=== PATIENT | male | born 1945 | race Caucasian/White ===

== ENCOUNTER 2017-11-15 13:45 | Emergency (ER) | payer MEDICARE ==
--- NOTE | 2017-11-15 14:52 | ERPHSYRPT ---
- History of Present Illness Time Seen by Provider: 11/15/17 14:38 Source: patient, EMS Exam Limitations: no limitations Patient Subjective Stated Complaint: pt here for a syncope episode today while getting out of truck, pt lost hes yesterday, pt states he eat breakfast today,BS was 124 Triage Nursing Assessment: pt alert, resp easy,skin w/d/p. has abrasion to right forehead and to right cheeck, pt refused c collar and co neck pain Physician History: The patient is a 72-year-old male brought in by ambulance from home where he passed out while stepping out of a pickup truck, causing him to fall "flat on his face on the ground". He complains of neck pain but refused to wear the c- collar. He is feeling much better now except for the neck pain. He denies nausea or vomiting. He denies numbness or tingling. He had a tragic event happened yesterday during which his had a major heart attack and . He hasn't eaten or had much to drink in 24 hours. His last tetanus vaccination is unknown. His past medical history is significant for hypertension, diabetes, high cholesterol, CAD, cardiac stent, appendectomy. Witnessed: by family Prior Episodes: single episode today Timing/Duration: today, sudden, improved Precipitating Factors: lightheadedness Context: standing Loss of Consciousness: brief (seconds) Charcter of event(s): became unresponsive Allergies/Adverse Reactions: No Known Drug Allergies Allergy (Unverified 11/15/17 14:02) Home Medications: Androgel 1 ea DAILY 08/29/11 [History] Aspirin EC 325 mg 325 mg PO DAILY 08/29/11 [History] Lipitor 20 mg PO DAILY 08/29/11 [History] Neurontin 300 mg 400 mg PO TID 08/29/11 [History] Nitrostat 0.4 MG 0.4 mg SL UD 08/29/11 [History] Toprol Xl 50 MG 100 mg PO DAILY 08/29/11 [History] Ultram 50 mg 50 mg PO TID 08/29/11 [History] Adalimumab [Humira] 20 mg IJ UD 07/31/14 [History] Ascorbic Acid 500 mg [Vitamin C 500 MG] 1,000 mg PO DAILY 07/31/14 [ History] Escitalopram Oxalate 10 mg [Lexapro 10 MG] 10 mg PO DAILY 07/31/14 [History] Exenatide Microspheres [Bydureon Pen] 2 mg IJ UD 07/31/14 [History] Valsartan [Diovan] 80 mg PO DAILY 07/31/14 [History] hydrOXYzine HCl [Hydroxyzine HCl] 25 mg PO Q6H PRN PRN 07/31/14 [History] Hx Tetanus, Diphtheria Vaccination/Date Given: Yes (2011) Hx Influenza Vaccination/Date Given: No Hx Pneumococcal Vaccination/Date Given: No Immunizations Up to Date: No - Past Medical History Pertinent Past Medical History: Yes Neurological History: No Pertinent History ENT History: No Pertinent History Cardiac History: Coronary Artery Disease, Myocardial Infarction (PR) Respiratory History: No Pertinent History Endocrine Medical History: Diabetes Type II Musculoskeletal History: Arthritis GI Medical History: No Pertinent History History: No Pertinent History Psycho-Social History: Depression Male Reproductive Disorders: No Pertinent History Other Medical History: ACUTE INFERIOR WALL PR COMPLICATED WITH 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 - Past Surgical History Past Surgical History: Yes Neuro Surgical History: No Pertinent History Cardiac: Cardiac Stent Respiratory: No Pertinent History Gastrointestinal: Appendectomy Genitourinary: No Pertinent History Musculoskeletal: Orthopedic Surgery Male Surgical History: No Pertinent History Other Surgical History: repaired disk in lower back - Social History Smoking Status: Former smoker Exposure to second hand smoke: No Alcohol Use: Socially Drug Use: none Patient Lives Alone: Yes - Review of Systems Constitutional: No Fever, No Chills Eyes: No Symptoms Ears, Nose, & Throat: No Symptoms Respiratory: No Cough, No Dyspnea Cardiac: No Chest Pain, No Edema, No Syncope Abdominal/Gastrointestinal: No Abdominal Pain, No Nausea, No Vomiting, No Diarrhea Genitourinary Symptoms: No Dysuria Musculoskeletal: Fall, Injury, No Back Pain, No Neck Pain Skin: Other (abrasion), No Rash Neurological: No Dizziness, No Focal Weakness, No Sensory Changes Psychological: No Symptoms Endocrine: No Symptoms Hematologic/Lymphatic: No Symptoms Immunological/Allergic: No Symptoms All Other Systems: Reviewed and Negative Physical Exam - Nursing Vital Signs Nursing Vital Signs: Initial Vital Signs Temperature 97.2 F 11/15/17 13:47 Pulse Rate 77 11/15/17 13:47 Respiratory Rate 16 11/15/17 13:47 Blood Pressure 120/68 11/15/17 13:47 O2 Sat by Pulse Oximetry 95 11/15/17 13:47 Pain Scale Pain Intensity 10 - [place] Coma Scale Best Eye Response ([place]): (4) open spontaneously Best Verbal Response ([place]): (5) oriented Best Motor Response ([place]): (6) obeys commands [place] Total: 15 - Physical Exam General Appearance: no apparent distress, alert Eye Exam: bilateral eye: normal inspection, PERRL Ears, Nose, Throat Exam: normal ENT inspection, pharynx normal, moist mucous membranes Respiratory: normal breath sounds, lungs clear, No chest tenderness, No respiratory distress Cardiovascular: regular rate/rhythm, capillary refill <2 sec, No murmur, No pulse deficit Gastrointestinal: soft, No tenderness, No distention, No mass Rectal Exam: not done Back Exam: normal inspection, normal range of motion, No CVA tenderness, No vertebral tenderness Extremity Exam: normal inspection, normal range of motion, pelvis stable, No tenderness 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, 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, 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 Exam: normal speech, PERRL, No facial droop Coordination/Gait: normal finger to nose Motor/Sensory: no motor deficit, no sensory deficit, no pronator drift Skin Exam: abrasion (right forehead) SpO2 Interpretation: normal SpO2: 95 Oxygen Delivery: Room Air - Course EKG Interpreted by Me: RATE, Sinus Rhythm, NORMAL AXIS, NORMAL INTERVALS, NORMAL QRS, NORMAL ST-T, Other (no change in EKG compared to EKG 08/29/11.) - CT Exams Head CT Interpretation: Negative, Tele-radiologist Report (per Dr Pineda), No Fracture , No/Intracranial Hemorrhag Maxillofacial Bones CT Interpretation: Negative, Tele-radiologist Report (Per Dr Pineda), No Fracture Cervical Spine CT Interpretation: Tele-radiologist Report (per Dr Pineda), No Fracture, No Subluxation Ordered Tests: Active Orders 24 hr Category Date Time Status EKG-ER Only STAT Care 11/15/17 14:58 Active IV Insertion STAT Care 11/15/17 14:58 Active Orthostatic Vital Signs STAT Care 11/15/17 14:58 Active Pulse Oximetry (ED) STAT Care 11/15/17 14:58 Active CERVICAL SPINE WO CONTRAST [CT] Stat Exams 11/15/17 15:51 Taken FACIAL BONES WO CONTRAST [CT] Stat Exams 11/15/17 15:00 Taken HEAD WITHOUT CONTRAST [CT] Stat Exams 11/15/17 14:59 Taken CBC W DIFF Stat Lab 11/15/17 15:15 Completed CMP Stat Lab 11/15/17 15:15 Completed ETHYL ALCOHOL Stat Lab 11/15/17 15:15 Completed Lactic Acid Stat Lab 11/15/17 15:25 Completed Manual Differential NC Stat Lab 11/15/17 15:15 Completed UA W/RFX UR CULTURE Stat Lab 11/15/17 14:58 Uncollected Medication Summary Discontinued Medications Generic Name Dose Route Start Last Admin Trade Name Freq PRN Reason Stop Dose Admin Diphtheria/Tetanus/Acell Pertussis 0.5 ml 11/15/17 15:20 11/15/17 16:02 Adacel Vial IM 11/15/17 15:21 0.5 ml .ONCE ONE Administration Diphtheria/Tetanus/Acell Pertussis Confirm 11/15/17 15:34 Adacel Vial Administered 11/15/17 15:35 Dose 0.5 ml IM .STK-MED ONE Sodium Chloride 1,000 mls @ 999 mls/hr 11/15/17 14:58 11/15/17 16:02 Sodium Chloride 0.9% 1000 Ml IV 11/15/17 15:58 999 mls/hr .Q1H1M STA Administration Sodium Chloride Confirm 11/15/17 15:34 Sodium Chloride 0.9% 1000 Ml Administered 11/15/17 15:35 Dose 1,000 mls @ ud .ROUTE .STK-MED ONE Morphine Sulfate 4 mg 11/15/17 15:20 11/15/17 16:02 Morphine Sulfate 4 Mg Inj IM 11/15/17 15:21 4 mg STAT ONE Administration Morphine Sulfate Confirm 11/15/17 15:34 Morphine Sulfate 4 Mg Inj Administered 11/15/17 15:35 Dose 4 mg .ROUTE .STK-MED ONE Lab/Rad Data: Laboratory Result Diagrams 11/15/17 15:15 11/15/17 15:15 Laboratory Results 11/15/17 11/15/17 11/15/17 Range/Units 15:25 15:15 15:15 WBC 13.9 H (4.0-10.5) K/mm3 RBC 4.62 (4.1-5.6) M/mm3 Hgb 13.4 (12.5-18.0) gm/dl Hct 40.1 L (42-50) % MCV 86.8 (78-100) fl MCH 29.0 (26-32) pg MCHC 33.4 (32-36) g/dl RDW 14.9 H (11.5-14.0) % Plt Count 214 (150-450) K/mm3 MPV 9.9 H (6-9.5) fl Gran % 61.1 (36.0-66.0) % Eos # (Auto) 0.23 (0-0.5) Absolute Lymphs (auto) 3.74 (1.0-4.6) Absolute Monos (auto) 1.40 H (0.0-1.3) Lymphocytes % 26.8 (24.0-44.0) % Monocytes % 10.1 (0.0-12.0) % Eosinophils % 1.7 (0.00-5.0) % Basophils % 0.3 (0.0-0.4) % Absolute Granulocytes 8.52 H (1.4-6.9) Segmented Neutrophils 52 (36.-66.) % Lymphocytes (Manual) 37 (24-44) % Monocytes (Manual) 11 (0.0-12.0) % Basophils # 0.04 (0-0.4) Platelet Estimate NORMAL (NORMAL) RBC Morphology NORMAL Sodium 141 (137-145) mmol/L Potassium 3.7 (3.5-5.1) mmol/L Chloride 104 (98-107) mmol/L Carbon Dioxide 25 (22-30) mmol/L Anion Gap 15.5 H (5-15) MEQ/L BUN 20 (9-20) mg/dL Creatinine 1.14 (0.66-1.25) mg/dL Estimated GFR > 60.0 ML/MIN Glucose 67 L (74-106) mg/dL Lactic Acid 1.7 (0.4-2.0) Calcium 9.4 (8.4-10.2) mg/dL Total Bilirubin 0.60 (0.2-1.3) mg/dL AST 45 (17-59) U/L ALT 47 (0-50) U/L Alkaline Phosphatase 99 (38-126) U/L Serum Total Protein 7.7 (6.3-8.2) g/dL Albumin 4.3 (3.5-5.0) g/dL Ethyl Alcohol < 10 (0-10) mg/dL - Progress Progress: improved Counseled pt/family regarding: lab results, diagnosis, rad results - Departure Time of Disposition: 16:31 Departure Disposition: Home Clinical Impression: Syncope and collapse Condition: Stable Critical Care Time: No Referrals: YOGESH LI [Primary Care Provider] - Additional Instructions: You had a syncopal/fainting episode today. It caused you to fall on your face, creating an abrasion to your face. The CT scans of your head, neck, and face were negative. Your EKG was normal. You were given morphine 4 mg and fluids by IV in the ER. You were given a tetanus vaccination in the ER. Stay well hydrated and eat a good diet. Follow-up with your primary medical doctor as needed.
[2017-11-15] MEDS ORDERED: Sodium Chloride 0.9% 1000 ML 1,000 ML IV STA (14:58)
[2017-11-15] MEDS ORDERED: MORPHINE SULFATE 4 MG INJ IM ONE (15:20)
[2017-11-15] MEDS ORDERED: Adacel Vial IM ONE ×2 (15:20→15:34)
[2017-11-15] MEDS ORDERED: Sodium Chloride 0.9% 1000 ML 1,000 ML ONE (15:34)
[2017-11-15] MEDS ORDERED: MORPHINE SULFATE 4 MG INJ ONE (15:34)
[2017-11-15 15:39] LABS: BASOPHIL % 0.3 % (0.0-0.4); Basophil (Absolute #) 0.04 (0-0.4); Eosinophil % 1.7 % (0.00-5.0); Eosinophil (Absolute #) 0.23 (0-0.5); Granulocyte Absolute (ANC) 8.52 (1.4-6.9); Granulocytes % 61.1 % (36.0-66.0); Hematocrit 40.1 % (42-50); Hemoglobin 13.4 gm/dl (12.5-18.0); Lymphocyte (Absolute #) 3.74 (1.0-4.6); Lymphocytes % 26.8 % (24.0-44.0); Mean Cell Volume 86.8 fl (78-100); Mean Corpuscular Hgb Concent. 33.4 g/dl (32-36); Mean Platelet Volume 9.9 fl (6-9.5); Monocytes % 10.1 % (0.0-12.0); Platelet Count 214 K/mm3 (150-450); Red Blood Count 4.62 M/mm3 (4.1-5.6); Red Cell Distribution Width 14.9 % (11.5-14.0); White Blood Count 13.9 K/mm3 (4.0-10.5)
[2017-11-15 15:57] LABS: ALBUMIN 4.3 g/dL (3.5-5.0); ALKALINE PHOSPHATASE 99 U/L (38-126); ANION GAP 15.5 MEQ/L (5-15); BLOOD UREA NITROGEN 20 mg/dL (9-20); CHLORIDE 104 mmol/L (98-107); Calcium 9.4 mg/dL (8.4-10.2); Carbon Dioxide 25 mmol/L (22-30); Creatinine 1 1.14 mg/dL (0.66-1.25); Glucose 67 mg/dL (74-106); Potassium 3.7 mmol/L (3.5-5.1); SGOT/AST 45 U/L (17-59); SGPT/ALT 47 U/L (0-50); SODIUM 141 mmol/L (137-145); Total Protein 7.7 g/dL (6.3-8.2)
[2017-11-15 16:00] LABS: ETHYL ALCOHOL < 10 mg/dL (0-10)
[2017-11-15 16:19] LABS: Lymphocytes 37 % (24-44); Monocyte 11 % (0.0-12.0); Neutrophils 52 % (36.-66.); Total Cells Counted 100
[2017-11-15 16:20] LABS: Platelet Estimate NORMAL (NORMAL)
[2017-11-15 17:14] VITALS: BP 118/72; PULSE 71; O2SAT 94
--- NOTE | 2017-11-15 20:17 | XRAY ---
Indication: Pain following fall. Loss of consciousness. Multiple contiguous axial images obtained through the head without contrast. Comparison: None Age-appropriate global atrophy and minimal periventricular degenerative micro-ischemia bilaterally. No acute intracranial hemorrhage, abnormal extra-axial fluid collection, or mass effect. Fourth ventricle is midline without hydrocephalus. Bony calvarium intact. Visualized paranasal sinuses and mastoid air cells are clear. Impression: Normal aging brain including atrophy and degenerative micro-ischemia. No acute intracranial abnormalities. Comment: Preliminary interpretation was made by [facility]. No discrepancy. CTDI 50.53
--- NOTE | 2017-11-15 20:20 | XRAY ---
Indication: Pain following fall. Loss of consciousness. Multiple contiguous axial images obtained through the cervical spine. Sagittal and coronal reformatted images obtained. Comparison: None Axial images negative for acute fracture, suspicious bony lesions, or spinal canal stenosis. Mild/moderate C4-T2 degenerative endplate spurring. Sagittal and coronal reformatted images demonstrate normal alignment with C5-T1 disc space narrowing. No acute compression fracture, subluxation, or jumped facet. Normal-appearing craniocervical junction. Visualized noncontrasted soft tissues including on apices unremarkable. CT head reported separately. Impression: 1. Negative acute fracture/subluxation. 2. Multilevel degenerative changes. Comment: Preliminary interpretation was made by [facility]. No discrepancy. CTDI 65.33
--- NOTE | 2017-11-15 20:22 | XRAY ---
Indication: Right forehead and right cheek pain following fall. Loss of consciousness. Multiple contiguous axial images obtained through the facial bones. Sagittal and coronal reformatted images obtained. Comparison: None Patient is edentulous. No acute fracture, suspicious bony lesions, or radiopaque foreign body. Orbits including roof, mejia, and floors intact. Paranasal sinuses and nasal passages are clear. Visualized noncontrasted soft tissues unremarkable. CT cervical spine and CT head reported separately. Impression: Negative CT facial bones. Comment: Preliminary interpretation was made by [facility]. No discrepancy. CTDI 59.47
== END 2017-11-15 17:15 | disposition home or self-care (01) ==
LOC: ED 13:45
DX: R55 Syncope and collapse (principal); I25.10 Atherosclerotic heart disease of native coronary artery without angina pectoris; M54.2 Cervicalgia; E11.9 Type 2 diabetes mellitus without complications; M19.90 Unspecified osteoarthritis, unspecified site; I25.2 Old myocardial infarction; Z79.899 Other long term (current) drug therapy
CPT/HCPCS: 36000; 36415; 70450; 70486; 72125; 80053; 80307; 83605; 85025; 90471; 90715; 93005; 96360; 96372; 99284; J2270; G0480